=== PATIENT | female | born 1935 | race Caucasian/White ===

== ENCOUNTER 2022-02-14 15:23 | Emergency (ER) | payer MEDICARE ==
[~2022-02-14] VITALS: Ht 167.6 cm; Wt 79.8 kg
--- NOTE | 2022-02-14 15:59 | NUR ---
PRAB[facility] DAUGHTER [phone]
[2022-02-14] MEDS ORDERED: IV NS 0.9% 1,000 ML BAG IV ONE (16:00)
--- NOTE | 2022-02-14 16:11 | NUR ---
TECH AT BEDSIDE FOR EKG
[2022-02-14 16:19] LABS: BASOPHILS % (AUTO) 0.3 % (0.0-2.0); EOSINOPHILS % (AUTO) 0.8 % (0.0-6.0); HEMATOCRIT 41 % (33-45); HEMOGLOBIN 13.5 g/dL (11.5-14.8); LYMPHOCYTES # (AUTO) 1.1 K/uL (0.8-4.8); LYMPHOCYTES % (AUTO) 18.9 % (20.0-44.0); MEAN CORPUSCULAR HGB CONC 33 g/dl (31.0-36.0); MEAN CORPUSCULAR VOLUME 105 fL (82-100); MONOCYTES # (AUTO) 0.4 K/uL (0.1-1.30); MONOCYTES % (AUTO) 6.5 % (2.0-12.0); NEUTROPHILS # (AUTO) 4.2 K/uL (1.8-8.9); NEUTROPHILS % (AUTO) 73.5 % (43.0-81.0); PLATELET COUNT (AUTO) 185 K/uL (150-450); RED BLOOD CELL COUNT(AUTO) 3.88 MIL/uL (4.0-5.2); WHITE BLOOD COUNT (AUTO) 5.7 K/uL (4.3-11.0)
--- NOTE | 2022-02-14 16:30 | NUR ---
MOVE SHEET SUBMITTED.
--- NOTE | 2022-02-14 16:38 | NUR ---
COVID SWAB COLLECTED AND SENT TO LAB
--- NOTE | 2022-02-14 16:38 | NUR ---
SEARCH SPECIALIST AT BEDSIDE
[2022-02-14 16:41] LABS: CALCIUM, SERUM 9.2 mg/dL (8.5-10.1); CARBON DIOXIDE 27 mmol/L (21-32); CHLORIDE 109 mmol/L (98-107); CREATININE 1.3 mg/dL (0.6-1.3); GLUCOSE 118 mg/dL (74-106); POTASSIUM 3.9 mmol/L (3.5-5.1); SODIUM SERUM 143 mmol/L (136-145); UREA NITROGEN, BLOOD 12 mg/dL (7-18)
[2022-02-14] MEDS ORDERED: MULT-1200 PO (16:43)
[2022-02-14] MEDS ORDERED: LACT1CAP71 PO (16:43)
[2022-02-14] MEDS ORDERED: ESTR42.5 VG (16:43)
[2022-02-14] MEDS ORDERED: AMLO1CAP6 PO (16:43)
[2022-02-14] MEDS ORDERED: VIT1CAPS44 PO (16:43)
[2022-02-14] MEDS ORDERED: PYRI100T10 PO (16:43)
[2022-02-14] MEDS ORDERED: FLUO40CA49 PO (16:43)
[2022-02-14] MEDS ORDERED: FOLI0.4T6 PO (16:43)
[2022-02-14] MEDS ORDERED: GARL1TAB2 PO (16:43)
[2022-02-14] MEDS ORDERED: ATOR20TA PO (16:43)
[2022-02-14] MEDS ORDERED: MELA5TAB PO (16:43)
[2022-02-14] MEDS ORDERED: CALC-1198 PO (16:43)
[2022-02-14] MEDS ORDERED: ASPI-1169 PO (16:43)
[2022-02-14] MEDS ORDERED: CHOL100043 PO (16:43)
[2022-02-14] MEDS ORDERED: CYAN100096 PO (16:43)
[2022-02-14 16:47] LABS: ALANINE AMINOTRANSFERASE 21 U/L (12-78); ALBUMIN 3.4 g/dL (3.4-5.0); ALKALINE PHOSPHATASE 77 U/L (46-116); ASPARTATE AMINOTRANSFERASE 12 U/L (15-37); BILIRUBIN,DIRECT 0.1 mg/dL (0.0-0.2); BILIRUBIN,TOTAL 0.4 mg/dL (0.2-1.0); TOTAL PROTEIN, SERUM 6.2 g/dL (6.4-8.2)
--- NOTE | 2022-02-14 17:31 | NUR ---
[facility] CALLED [employer].
[2022-02-14 18:09] VITALS: BP 101/60
== END 2022-02-14 18:10 | disposition left against medical advice (07) ==
LOC: ER 16:24 → EDBD 16:24 → ER 18:10
DX: R55 Syncope and collapse (principal); Z20.822 Contact with and (suspected) exposure to COVID-19; E78.00 Pure hypercholesterolemia, unspecified; Z88.0 Allergy status to penicillin; I49.1 Atrial premature depolarization
CPT/HCPCS: 36415; 71045-TC; 80048-TC; 80076-TC; 84484-TC; 85025-TC; C9803